=== PATIENT | female | born 1935 | race Asian ===

== ENCOUNTER 2021-12-24 13:27 | Emergency (ER) | payer MEDICARE ==
[~2021-12-24] VITALS: Ht 157.5 cm; Wt 65.0 kg
[2021-12-24 13:31] VITALS: BP 122/57
== END 2021-12-24 16:02 | disposition left against medical advice (07) ==
LOC: ER 14:03
DX: K92.1 Melena (principal); Z53.21 Procedure and treatment not carried out due to patient leaving prior to being seen by health care provider
CPT/HCPCS: 99281